=== PATIENT | female | born 1995 | race Hispanic/Latino ===

== ENCOUNTER 2017-07-27 16:18 | Inpatient (IN) | payer BC, SELFPAY ==
[2017-07-27 16:54] LABS: #Basophils 0.1 thou/uL (0.0-0.2); #Eosinphils 0.3 thou/uL (0.0-0.7); #Lymphocytes 4.7 thou/uL (1.20-3.40); #Monocytes 0.8 thou/uL (0.11-0.59); #Neutrophils 3.9 thou/uL (1.40-6.50); %Basophils 0.8 % (0.0-1.0); %Eosinophils 2.9 % (0.0-10.0); %Lymphocytes 48.4 % (21.0-51.0); %Monocytes 8.1 % (0.0-10.0); Hematocrit 34.1 % (36.0-47.0); Mean Platelet Volume 6.7 fL (7.4-10.4); Red Blood Cell (RBC) Count 3.92 mill/uL (4.20-5.40); White Blood Cell (WBC) Count 9.6 thou/uL (4.8-10.8)
[2017-07-27 17:15] LABS: ALT (SGPT) 31 U/L (8-55); AST (SGOT) 26 U/L (5-34); Alkaline Phosphatase 120 U/L (40-150); Anion Gap 13 mmol/L (10-20); BUN (Urea Nitrogen) 8 mg/dL (7.0-18.7); Bilirubin, Total 0.5 mg/dL (0.2-1.2); Calc. Creatinine Clearance 0 mL/min (70-130); Calcium 9.1 mg/dL (7.8-10.44); Carbon Dioxide 22 mmol/L (22-29); Chloride 109 mmol/L (98-107); Estimated GFR-MDRD Greater than 90; Globulin 4.7 g/dL (2.4-3.5); Protein, Total 8.4 g/dL (6.0-8.3)
[2017-07-27] MEDS ORDERED: Ketorolac Tromethamine 30 MG/ML VIAL ONE (17:40)
[2017-07-27] MEDS ORDERED: Metoclopramide HCl 10 MG/2 ML VIAL ONE (17:40)
--- NOTE | 2017-07-27 17:46 | CT ---
CT OF THE BRAIN WITHOUT CONTRAST: COMPARISON: None. HISTORY: Right side blurry vision since 07/22/2017. The patient initially had a headache. TECHNIQUE: Multiple contiguous axial images were obtained in a CT of the brain without contrast. FINDINGS: The brain is normal in morphology and attenuation without focal lesions or confluent areas of infarc tion. Hyperdense regions in the basal ganglia likely represent calcifications. There is no evidenc e of hydrocephalus, intracranial hemorrhage, or extraaxial fluid collection. The calvarium and overlying soft tissues are unremarkable. The visualized paranasal sinuses and mas toid air cells are well-aerated. IMPRESSION: No evidence of acute intracranial abnormality. POS: [facility]
[2017-07-27] MEDS ORDERED: Proparacaine 0.5% Opth 15 ML BOT ONE (19:35)
[2017-07-27] MEDS ORDERED: Fluorescein Opthalmic Strip ONE (19:35)
--- NOTE | 2017-07-27 20:53 | PDOC.EVN ---
Event Note - Event Note Event Note: [id number] 1. R/O MS + R/O Optic neuritis 2. Pain 3. Headache + Fever plan: see orders
[2017-07-27] MEDS ORDERED: Dextrose 50% Abboject 50 ML SYRINGE SLOW IVP PRN (20:54)
[2017-07-27] MEDS ORDERED: Ondansetron HCl/PF 4 MG/2 ML Vial IVP PRN (20:54)
[2017-07-27] MEDS ORDERED: Acetaminophen 325 MG TAB PO PRN (20:54)
[2017-07-27] MEDS ORDERED: Dextrose 5% in Water 1,000 ML IV PRN (20:54)
[2017-07-27] MEDS ORDERED: HumaLOG 300 UNITS/3 ML VIAL SC PRN ×2 (20:54)
[2017-07-27] MEDS ORDERED: methylPREDNISolone Sod Succ 1,000 MG in Sodium Chloride 0.9% 250 ML 250 ML IVPB SCH (21:00)
[2017-07-28 00:07] VITALS: BMI 42.3
[2017-07-28] MEDS: Sodium Chloride 0.9% 1,000 ML IV SCH ×4 (00:29→23:05)
[2017-07-28 05:19] LABS: Anion Gap 12 mmol/L (10-20); BUN (Urea Nitrogen) 10 mg/dL (7.0-18.7); Calc. Creatinine Clearance 170 mL/min (70-130); Calcium 8.8 mg/dL (7.8-10.44); Carbon Dioxide 19 mmol/L (22-29); Chloride 108 mmol/L (98-107); Estimated GFR-MDRD Greater than 90
[2017-07-28 06:03] LABS: Band 17 % (5-11); Mean Platelet Volume 6.8 fL (7.4-10.4); Neutrophil 61 % (42-75); Red Blood Cell (RBC) Count 4.26 mill/uL (4.20-5.40); White Blood Cell (WBC) Count 7.9 thou/uL (4.8-10.8)
--- NOTE | 2017-07-28 07:08 | HP ---
DATE OF ADMISSION: 07/27/2017 CHIEF COMPLAINT: Headache, fever, right eye vision loss. HISTORY OF PRESENT ILLNESS: The patient is 22-year-old female started having headache and fever for the past 10 days, intermittent; fever at home was up to 102. Denies any fever here. The patient complains of headache. Headache is all over the head, more on the right side, constant headache, dull kind, no aggravating factors, no relieving factors. The patient then started having vision loss of the right eye; decreased vision loss, right eye 6 days ago; complains of blurry vision. Denies any dizziness, denies any lightheadedness at this time. The patient's symptoms persisted that is why she came to the ER. PAST MEDICAL HISTORY: None. PAST SURGICAL HISTORY: None. 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 Currently, she should be starting menstrual cycle this week. Denies any pregnancies before. SOCIAL HISTORY: Denies smoking, denies alcohol, denies any drugs. FAMILY HISTORY: Denies heart problems. REVIEW OF SYSTEMS: Constitutional: Positive for fever and chills. Eyes: Positive for right eye decreased vision. Oral cavity: Denies any thrush. Neck : Denies any neck pain. Cardiovascular: Denies any chest pain, palpitations. At this time, complained of one episode of chest pain a few days back. Respiratory: Denies any cough, denies any sputum production. Gastrointestinal : Denies nausea, vomiting. Musculoskeletal: Denies any joint deformities. Integumentary: Denies any rash. Cranial nerve system: Positive for right eye decreased vision. Psychiatric: Denies any anxiety. Genitourinary: Denies any dysuria. All other review of systems are reviewed and are negative. PHYSICAL EXAMINATION: CONSTITUTIONAL/VITAL SIGNS: At the time of H and P performed, blood pressure is 120/70, afebrile, temperature 98.8, respiratory rate 18, and pulse ox 97% on room air. GENERAL APPEARANCE: The patient appears comfortable. HEENT: Pupils, right eye decreased vision present. Complains of blurry vision. NECK: Denies any neck pain. CARDIOVASCULAR: S1 S2 Present, rrr, no murmur, no rubs, no gallop PSYCHIATRIC: Denies anxiety. MUSCULOSKELETAL: Good range of motion in all joints. No edema. CRANIAL NERVE SYSTEM: Right eye decreased vision. Other cranial nerves appears intact. Strength intact, sensory intact. CARDIOVASCULAR SYSTEM: S1, S2 present, regular rate and rhythm, no murmurs, no rubs, no gallops. RESPIRATORY SYSTEM: No wheezing, no rhonchi. Breath sounds bilaterally. INTEGUMENTARY: No obvious rashes seen. LABORATORY DATA: At the time of H and P performed, white count 9.6, hemoglobin 11.7, platelet count 423,000. Sed rate 83. Sodium 140, potassium 3.5, chloride 109, CO2 of 22, BUN 8, creatinine 0.72. CRP 12.18. Serum protein 8.4 , globulin 4.7. ASSESSMENT AND PLAN: The patient is a 22-year-old female. 1. Rule out multiple sclerosis plus right eye decreased vision possible optic neuritis . ED physician did speak to the sawdust drier, Dr. Huey Dillon. He recommend to start the patient on 1 g Solu-Medrol daily for 3 days and he will evaluate the patient in the morning. We will go ahead and consult. We will consult Neurology also to evaluate the patient. We will keep neuro checks q.4 hours. We will monitor the patient closely. We will start the patient on insulin sliding scale also. 2. Headache and fever. Currently, fever resolved. We will go ahead and do blood cultures and urine culture and sensitivity also. If she spikes fever, we will discuss with neurologist about a possible LP also, but at this time, no meningeal signs. We will monitor the patient closely. We will do cultures and if the patient develops fever, we will go ahead and get LP done. 3. Pain, p.r.n. pain medications. Case was discussed in detail with the patient and the patient's boyfriend also. SANA
[2017-07-28] MEDS ORDERED: Loratadine 10 MG TAB PO PRN (07:58)
[2017-07-28] MEDS ORDERED: Eucerin (Mineral Oil/Petrolatum,White) 30 gm Jar TOP PRN (07:58)
[2017-07-28] MEDS ORDERED: Senokot 8.6 MG TAB PO PRN (07:58)
[2017-07-28] MEDS ORDERED: Temazepam 15 MG CAP PO PRN (07:58)
[2017-07-28] MEDS ORDERED: Artificial Tears 18 DROP/0.9 ML EA EYE PRN (07:58)
[2017-07-28] MEDS ORDERED: Bisacodyl 10 MG SUPP PR PRN (07:58)
[2017-07-28] MEDS ORDERED: Diabetic Tussin 200 MG/10 ML UDCUP PO PRN (07:58)
[2017-07-28] MEDS ORDERED: Sodium Chloride 0.65% Nasal 44 ML BOT EA NARE PRN (07:58)
[2017-07-28] MEDS ORDERED: Loperamide HCl 2 MG CAP PO PRN (07:58)
[2017-07-28] MEDS ORDERED: Ondansetron ODT 4 MG TAB PO PRN (07:58)
[2017-07-28] MEDS ORDERED: Milk Of Magnesia 30 ML UDCUP PO PRN (07:58)
[2017-07-28] MEDS ORDERED: Mag-Al 1200 mg/1200 mg/30 ML UDCUP PO PRN (07:58)
[2017-07-28] MEDS ORDERED: methylPREDNISolone Sod Succ 1,000 MG in Sodium Chloride 0.9% 250 ML 250 ML IVPB SCH (09:00)
[2017-07-28] MEDS: Famotidine 20 MG TAB PO SCH ×2 (09:12→20:50)
--- NOTE | 2017-07-28 11:34 | PDOC.PN ---
- Subjective Encounter Start Date: 07/28/17 Encounter Start Time: 08:20 -: old records requested/rev has headache, has blurred vision on right eye, has fever - Objective MAR Reviewed: Yes Vital Signs & Weight: Vital Signs (12 hours) Temp Pulse Resp BP BP Pulse Ox 07/28/17 08:24 97.8 F 64 18 132/84 98 07/28/17 08:00 97.8 F 64 18 07/28/17 03:50 97.8 F 77 20 105/69 98 07/28/17 01:47 98.4 F Weight Weight 209 lb 9 oz Result Diagrams: 07/28/17 04:29 07/28/17 04:29 Additional Labs: Accuchecks 07/28/17 07/28/17 03:54 00:40 POC Glucose 285 H 143 H Radiology Reviewed by me: Yes Phys Exam - Physical Examination Constitutional: NAD HEENT: PERRLA, moist MMs, sclera anicteric Neck: no JVD, supple Respiratory: no wheezing, no rales, no rhonchi Cardiovascular: RRR, no significant murmur, no rub Gastrointestinal: soft, non-tender, no distention, positive bowel sounds Musculoskeletal: no edema, pulses present Neurological: non-focal, normal sensation, moves all 4 limbs Lymphatic: no nodes Psychiatric: normal affect, A&O x 3 Skin: no rash, normal turgor Dx/Plan (1) Fever Code(s): R50.9 - FEVER, UNSPECIFIED Status: Acute (2) Headache Code(s): R51 - HEADACHE Status: Acute (3) Morbid obesity Code(s): E66.01 - MORBID (SEVERE) OBESITY DUE TO EXCESS CALORIES Status: Acute (4) Blurred vision, right eye Code(s): H53.8 - OTHER VISUAL DISTURBANCES Status: Acute - Plan cont current plan of care * will do LP and send CSF study * will get MRI * neurology consulted * opthalmology consulted * discussed with family * medication reviewed as below * symptomatic treatment. Review of Systems - Review of Systems Constitutional: Fever. negative: Chills, Sweats, Weakness, Malaise, Other Eyes: Vision Change. negative: Pain, Conjunctivae Inflammation, Eyelid Inflammation, Redness, Other Respiratory: negative: Cough, Dry, Shortness of Breath, Hemoptysis, SOB with Excertion, Pleuritic Pain, Sputum, Wheezing Cardiovascular: negative: Chest Pain, Palpitations, Orthopnea, Paroxysmal Noc. Dyspnea, Edema, Light Headedness, Other Gastrointestinal: negative: Nausea, Vomiting, Abdominal Pain, Diarrhea, Constipation, Melena, Hematochezia, Other Genitourinary: negative: Dysuria, Frequency, Incontinence, Hematuria, Retention , Other Musculoskeletal: negative: Neck Pain, Shoulder Pain, Arm Pain, Back Pain, Hand Pain, Leg Pain, Foot Pain, Other Skin: negative: Rash, Lesions, Keo, Bruising, Other Neurological: negative: Weakness, Numbness, Incoordination, Change in Speech, Confusion, Seizures, Other - Medications/Allergies Allergies/Adverse Reactions: Allergies Allergy/AdvReac Type Severity Reaction Status Date / Time No Known Drug Allergies Allergy Verified 07/27/17 23:49 Medications: Current Medications Acetaminophen (Tylenol) 650 mg PO Q4H PRN PRN Reason: Headache/Fever or Pain Hydrocodone Bitart/Acetaminophen ([place] 5/325) 1 tab PO Q4H PRN PRN Reason: Moderate Pain (4-6) Al Hydroxide/Mg Hydroxide (Maalox) 15 ml PO Q4H PRN PRN Reason: Heartburn or Indigestion Artificial Tears (Tears Naturale) 0 drop EA EYE PRN PRN PRN Reason: Dry Eyes Bisacodyl (Dulcolax) 10 mg [place] DAILYPRN PRN PRN Reason: Constipation Dextrose/Water (Dextrose 50%) 25 gm SLOW IVP PRN PRN PRN Reason: Hypoglycemia Famotidine (Pepcid) 20 mg PO BID [facility] Last Admin: 07/28/17 09:12 Dose: 20 mg Glucagon (Glucagon) 1 mg IM PRN PRN PRN Reason: Hypoglycemia Guaifenesin (Robitussin Sf) 200 mg PO Q4H PRN PRN Reason: Cough Hydralazine HCl (Apresoline) 10 mg SLOW IVP Q4H PRN PRN Reason: Systolic BP > 180 Dextrose/Water (D5w) 1,000 mls @ 0 mls/hr IV .Q0M PRN; As Directed PRN Reason: Hypoglycemia Sodium Chloride (Normal Saline 0.9%) 1,000 mls @ 125 mls/hr IV .Q8H [facility] Last Admin: 07/28/17 07:23 Dose: 1,000 mls Methylprednisolone Sodium Succinate 1,000 mg/ Sodium Chloride 266 mls @ 266 mls /hr IVPB DAILY [facility] Last Admin: 07/28/17 09:07 Dose: 266 mls Insulin Human Lispro (Humalog) 0 units SC .MODERATE SLIDING SC PRN PRN Reason: Moderate Correctional Scale Last Admin: 07/28/17 07:23 Dose: 0.6 unit Insulin Human Lispro (Humalog) 0 units SC .BEDTIME SLIDING SC PRN PRN Reason: Bedtime Correctional Scale Loperamide HCl (Imodium) 2 mg PO PRN PRN PRN Reason: Diarrhea/Loose Stools Loratadine (Claritin) 10 mg PO DAILYPRN PRN PRN Reason: Sinus Symptoms Magnesium Hydroxide (Milk Of Magnesium) 30 ml PO DAILYPRN PRN PRN Reason: Constipation Mineral Oil/White Petrolatum (Eucerin Cream) 0 gm TOP BIDPRN PRN PRN Reason: Dry Skin Ondansetron HCl (Zofran) 4 mg IVP Q6H PRN PRN Reason: Nausea/Vomiting Ondansetron HCl (Zofran Odt) 4 mg PO Q6H PRN PRN Reason: Nausea/Vomiting Senna (Senokot) 2 tab PO HSPRN PRN PRN Reason: Constipation Sodium Chloride (Flush - Normal Saline) 10 ml IVF Q12HR [facility] Last Admin: 07/28/17 09:07 Dose: Not Given Sodium Chloride (Flush - Normal Saline) 10 ml IVF PRN PRN PRN Reason: Saline Flush Sodium Chloride ([place] Nasal [place] 0.65%) 0 ml EA NARE QIDPRN PRN PRN Reason: Nasal Congestion Temazepam (Restoril) 15 mg PO HSPRN PRN PRN Reason: Insomnia
--- NOTE | 2017-07-28 12:40 | MRI ---
MRI BRAIN WITH AND WITHOUT CONTRAST: Technique: Multiplanar, multisequential imaging of the brain obtained. Post contrast images obtained with administration of 20 cc MultiHance IV. History: Headache, vision loss. FINDINGS: The ventricles have normal size and position. There is no evidence of mass or edema. No evidence of white matter abnormality. There is no evidence of restricted diffusion. No evidence of abnormal enha ncement. Cerebral vessels show normal flow voids. Paranasal sinuses appear clear. IMPRESSION: Unremarkable MRI brain. POS: [facility]
[2017-07-28] MEDS ORDERED: Gadobenate Dimeglumine 529 MG/1 ML (20ML VIAL) ONE (14:20)
--- NOTE | 2017-07-28 15:16 | RAD ---
TWO VIEW CHEST: History: Fever. FINDINGS: Lungs and mediastinum appear normal. Osseous structures are unremarkable. IMPRESSION: No acute finding. POS: [facility]
[2017-07-28 16:30] LABS: CSF, Glucose 85 mg/dl (40-70)
[2017-07-28 17:19] LABS: Bilirubin Negative (Negative); Blood, Urine Negative (Negative); Glucose, Urine (Dipstick) 500 mg/dL (Negative); Ketone, Urine Negative (Negative); Nitrite Negative (Negative); Protein, Urine (Dipstick) Negative (Neg-Trace)
--- NOTE | 2017-07-28 18:05 | RAD ---
PROCEDURE: FLUOROSCOPIC GUIDED LUMBAR PUNCTURE INDICATIONS: Fever, headache, vision loss, question meningitis or optic neuritis. Lumbar puncture is requested for CSF studies. FINDINGS: Approximately 3 mL of clear CSF is collected in each of three test tubes which are sent to Pathology for studies as ordered by the requesting physician. PROCEDURE NOTE: Procedure was discussed with patient. Patient was placed prone on the fluoroscopic table. The lower back was prepped and draped in the sterile manner. Local anesthesia is administered at the skin entr y site at L3 under fluoro guidance. A 22 gauge spinal needle was used to enter the spinal canal using a paramidline approach from the le ft at the L3 level under fluoroscopic guidance. Clear CSF was recovered. CSF was collected in three test tubes. Patient tolerated the procedure well. There were no problems or complications. POS: [facility]
[2017-07-28] MEDS ORDERED: methylPREDNISolone Sod Succ/PF 125 MG/2 ML VIAL IVP SCH (22:00)
--- NOTE | 2017-07-28 23:39 | CON ---
DATE OF CONSULTATION: 07/28/2017 NEUROLOGY CONSULTATION CONSULTING PHYSICIAN: Hospitalist Service. IMPRESSION: Monocular vision loss in the right eye, possibly secondary to septic emboli based on Op hthalmology's consultation. Her MRI of the brain does not show evidence of multiple sclerosis. PLAN: 1. Echocardiogram. 2. Blood cultures. 3. Consult Infectious Disease. HISTORY OF PRESENT ILLNESS: Ms. [place] is a 22-year-old female with no significant past his tory that she knew last week. She started experiencing headache and fever. She started noticing gr adual decrease in her vision out of the right eye. She felt like that it was a kind of steadily wor sening over the last several days, the headache would wax and wane in intensity. The fever was comi ng and going. She came in for admission and has been afebrile. She had an MRI of the brain done, w hich was unremarkable. Lumbar puncture showed clear colorless fluid with 3 white cells and 48 red c ells. Protein was 23 and glucose was 85. She has had some mildly elevated blood glucose since admi ssion. Ophthalmology evaluated the patient and did not feel her clinical picture was consistent wit h optic neuritis. PAST MEDICAL HISTORY: Otherwise, negative. ALLERGIES: None. SOCIAL HISTORY: No illicit drug use. FAMILY HISTORY: Noncontributory. REVIEW OF SYSTEMS: No other focal neurologic complaints. PHYSICAL EXAMINATION: GENERAL: She is an overweight young woman, lying in bed, in no distress. HEENT: Pupils are 8 mm and fixed secondary to dilation. Conjunctivae are clear. Oropharynx clear. NECK: Supple. NEUROLOGIC EXAM: She is alert and appropriate. Her speech is fluent and clear. Cranial nerves wer e intact other than what she describes as central field loss in the right eye. Motor exam showed go od strength bilaterally. There was no fix or drift present. No tremor or dysmetria was noted. Sen sation was intact in the extremities. She walks independently. SUMMARY: We will follow up on Ophthalmology's consultation suggestions and see if we can identify t he cause of her symptoms.
[2017-07-29] MEDS: Sodium Chloride 0.9% 1,000 ML IV SCH (04:27)
[2017-07-29 07:36] LABS: Anion Gap 12 mmol/L (10-20); BUN (Urea Nitrogen) 10 mg/dL (7.0-18.7); Calc. Creatinine Clearance 204 mL/min (70-130); Calcium 8.8 mg/dL (7.8-10.44); Carbon Dioxide 19 mmol/L (22-29); Chloride 111 mmol/L (98-107); Estimated GFR-MDRD Greater than 90
[2017-07-29 07:41] LABS: #Lymphocytes 1.9 thou/uL (1.20-3.40); #Monocytes 0.6 thou/uL (0.11-0.59); #Neutrophils 10.1 thou/uL (1.40-6.50); %Basophils 0.1 % (0.0-1.0); %Eosinophils 0.1 % (0.0-10.0); %Lymphocytes 15.3 % (21.0-51.0); %Monocytes 4.6 % (0.0-10.0); Hematocrit 34.8 % (36.0-47.0); Mean Platelet Volume 6.9 fL (7.4-10.4); Red Blood Cell (RBC) Count 3.91 mill/uL (4.20-5.40); White Blood Cell (WBC) Count 12.6 thou/uL (4.8-10.8)
[2017-07-29] MEDS: Famotidine 20 MG TAB PO SCH ×2 (08:25→22:58)
--- NOTE | 2017-07-29 12:53 | PDOC.PN ---
- Subjective Encounter Start Date: 07/29/17 Encounter Start Time: 09:10 pt still has visual symptoms in her right eye, no fever - Objective MAR Reviewed: Yes Vital Signs & Weight: Vital Signs (12 hours) Temp Pulse Resp BP Pulse Ox 07/29/17 11:19 97.5 F L 49 L 14 117/73 99 07/29/17 08:00 97.5 F L 49 L 16 07/29/17 07:35 97.5 F L 49 L 16 129/84 99 Weight Weight 209 lb 9 oz I&O: 07/28/17 07/29/17 07/30/17 06:59 06:59 06:59 Intake Total 1950 Balance 1950 Result Diagrams: 07/29/17 06:15 07/29/17 06:15 Additional Labs: Accuchecks 07/28/17 07/28/17 16:08 12:24 POC Glucose 119 H 165 H Phys Exam - Physical Examination Constitutional: NAD HEENT: PERRLA, moist MMs, sclera anicteric Neck: no JVD, supple Respiratory: no wheezing, no rales, no rhonchi Cardiovascular: RRR, no significant murmur, no rub Gastrointestinal: soft, non-tender, no distention, positive bowel sounds Musculoskeletal: no edema, pulses present Neurological: non-focal, normal sensation, moves all 4 limbs Psychiatric: normal affect, A&O x 3 Skin: no rash, normal turgor Dx/Plan (1) Fever Code(s): R50.9 - FEVER, UNSPECIFIED Status: Acute (2) Headache Code(s): R51 - HEADACHE Status: Acute (3) Morbid obesity Code(s): E66.01 - MORBID (SEVERE) OBESITY DUE TO EXCESS CALORIES Status: Acute (4) Blurred vision, right eye Code(s): H53.8 - OTHER VISUAL DISTURBANCES Status: Acute - Plan cont current plan of care * septic emboli as per opthalmology * pt does not have any obvious source of infection * csf negative * echo pending today * ID consulted * KARLEY ordered * will do carotid US * medication reviewed as below * symptomatic treatment.. Review of Systems - Review of Systems Eyes: Vision Change. negative: Pain, Conjunctivae Inflammation, Eyelid Inflammation, Redness, Other ENT: negative: Ear Pain, Ear Discharge, Nose Pain, Nose Discharge, Nose Congestion, Mouth Pain, Mouth Swelling, Throat Pain, Throat Swelling, Other Respiratory: negative: Cough, Dry, Shortness of Breath, Hemoptysis, SOB with Excertion, Pleuritic Pain, Sputum, Wheezing Cardiovascular: negative: Chest Pain, Palpitations, Orthopnea, Paroxysmal Noc. Dyspnea, Edema, Light Headedness, Other Gastrointestinal: negative: Nausea, Vomiting, Abdominal Pain, Diarrhea, Constipation, Melena, Hematochezia, Other Genitourinary: negative: Dysuria, Frequency, Incontinence, Hematuria, Retention , Other Musculoskeletal: negative: Neck Pain, Shoulder Pain, Arm Pain, Back Pain, Hand Pain, Leg Pain, Foot Pain, Other Skin: negative: Rash, Lesions, Keo, Bruising, Other - Medications/Allergies Allergies/Adverse Reactions: Allergies Allergy/AdvReac Type Severity Reaction Status Date / Time No Known Drug Allergies Allergy Verified 07/27/17 23:49 Medications: Current Medications Acetaminophen (Tylenol) 650 mg PO Q4H PRN PRN Reason: Headache/Fever or Pain Hydrocodone Bitart/Acetaminophen ([place] 5/325) 1 tab PO Q4H PRN PRN Reason: Moderate Pain (4-6) Al Hydroxide/Mg Hydroxide (Maalox) 15 ml PO Q4H PRN PRN Reason: Heartburn or Indigestion Artificial Tears (Tears Naturale) 0 drop EA EYE PRN PRN PRN Reason: Dry Eyes Bisacodyl (Dulcolax) 10 mg [place] DAILYPRN PRN PRN Reason: Constipation Dextrose/Water (Dextrose 50%) 25 gm SLOW IVP PRN PRN PRN Reason: Hypoglycemia Famotidine (Pepcid) 20 mg PO BID [facility] Last Admin: 07/29/17 08:25 Dose: 20 mg Glucagon (Glucagon) 1 mg IM PRN PRN PRN Reason: Hypoglycemia Guaifenesin (Robitussin Sf) 200 mg PO Q4H PRN PRN Reason: Cough Hydralazine HCl (Apresoline) 10 mg SLOW IVP Q4H PRN PRN Reason: Systolic BP > 180 Dextrose/Water (D5w) 1,000 mls @ 0 mls/hr IV .Q0M PRN; As Directed PRN Reason: Hypoglycemia Insulin Human Lispro (Humalog) 0 units SC .MODERATE SLIDING SC PRN PRN Reason: Moderate Correctional Scale Last Admin: 07/28/17 07:23 Dose: 0.6 unit Insulin Human Lispro (Humalog) 0 units SC .BEDTIME SLIDING SC PRN PRN Reason: Bedtime Correctional Scale Loperamide HCl (Imodium) 2 mg PO PRN PRN PRN Reason: Diarrhea/Loose Stools Loratadine (Claritin) 10 mg PO DAILYPRN PRN PRN Reason: Sinus Symptoms Magnesium Hydroxide (Milk Of Magnesium) 30 ml PO DAILYPRN PRN PRN Reason: Constipation Mineral Oil/White Petrolatum (Eucerin Cream) 0 gm TOP BIDPRN PRN PRN Reason: Dry Skin Ondansetron HCl (Zofran) 4 mg IVP Q6H PRN PRN Reason: Nausea/Vomiting Ondansetron HCl (Zofran Odt) 4 mg PO Q6H PRN PRN Reason: Nausea/Vomiting Senna (Senokot) 2 tab PO HSPRN PRN PRN Reason: Constipation Sodium Chloride (Flush - Normal Saline) 10 ml IVF Q12HR [facility] Last Admin: 07/29/17 08:27 Dose: 10 ml Sodium Chloride (Flush - Normal Saline) 10 ml IVF PRN PRN PRN Reason: Saline Flush Sodium Chloride ([place] Nasal [place] 0.65%) 0 ml EA NARE QIDPRN PRN PRN Reason: Nasal Congestion Temazepam (Restoril) 15 mg PO HSPRN PRN PRN Reason: Insomnia
[2017-07-29] MEDS ORDERED: Cyclopentolate 1% Opth Drop 2 ML BOT EA EYE SCH (13:30)
--- NOTE | 2017-07-29 15:44 | ULT ---
BILATERAL CAROTID DUPLEX ULTRASOUND: 07/29/17 HISTORY: 22-year-old female with vision changes, right sided blurry vision and headache. TECHNIQUE: Rees scale, color flow and spectral doppler ultrasound of the extracranial carotid artery system was performed bilaterally. No intimal wall thickening or plaque formation is seen on either side. The peak systolic velocity in the right ICA measures 54 cm/s with an end diastolic velocity of 26 cm /s and systolic ratio of 1.00. The peak systolic velocity in the left ICA measures 52 cm/s with an end diastolic velocity of 23 cm/ s and systolic ratio of 0.71. Flow in both vertebral arteries remains antegrade. IMPRESSION: No evidence of hemodynamically significant stenosis. POS: [facility]
--- NOTE | 2017-07-29 23:47 | CON ---
DATE OF CONSULTATION: 07/29/2017 REASON FOR CONSULTATION: Visual loss and fever with headaches. HISTORY OF PRESENT ILLNESS: A 22-year-old patient, who has no past medical history and new onset of headaches and fever for 10 days prior to admission, temperature went up to 102. The headache was l ocalized more in the right parietal region. Subsequently, she started noticing vision loss in the r ight side with central vision loss and blurriness. This started 6 days prior to admission. No nasa l symptoms, no ear pain, no sore throat, odynophagia, dysphagia. No cough, sputum production or darnell st pain. No abdominal pain or diarrhea. No genitourinary symptoms. No joint symptoms. No skin di sorder. No neurological symptoms outside the one as mentioned above. PAST MEDICAL HISTORY: Negative. PAST SURGICAL HISTORY: Negative. Last menstrual period 07/24/2017, never been . SOCIAL HISTORY: Never a smoker. 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 No drug use. No al coholic beverage use. Lives with her boyfriend in [place]. FAMILY HISTORY: Noncontributory. ALLERGIES: Negative. MEDICATION LIST: Pepcid, glucagon, hydralazine, insulin, Claritin, Zofran, and temazepam. She had methylprednisolone given for a while there, but that was discontinued. PHYSICAL EXAMINATION: VITAL SIGNS: T-max started at 100, but she defervesced since. Blood pressure 116/77, pulse 52, res pirations 14 to 20, O2 saturation 99%. GENERAL: Appears in no distress. SKIN: Normal, no lymphadenopathy. HEENT: Ocular movements are conjugate. Sclerae are white. Pupils are 1 mm and reactive. Oral cav ity is normal. Teeth in good shape. NECK: Supple, no jugular venous distention. LUNGS: Symmetric, auscultation and percussion. HEART: S1, S2, regular rate. No murmurs. ABDOMEN: Soft. Not distended or tender. No ascites. No bladder distention. EXTREMITIES: Moves all extremities equally. LABORATORY AND DIAGNOSTIC DATA: White cell count is up to 12.6, hemoglobin was 11.4, and platelets 396. Chemistry: Creatinine of 0.65 and sodium 138. CRP was initially 12.18, down to 7.58. CSF wa s done and showed 3 wbc's, 48 rbc's, glucose 85, protein 23. Serology was negative for syphilis, he patitis B surface antigen, hepatitis C and HIV and cryptococcus antigen CSF was negative. MRI did n ot show any abnormalities. Chest x-ray was normal. ASSESSMENT: Otherwise, healthy young female with new onset of headaches, fever and central vision l oss. Ophthalmology has evaluated the patient and believes that there is evidence to suggest retinit is. DISCUSSION: Differential diagnosis includes chorioretinitis secondary to mycoplasma, Bartonella or toxoplasma species. The patient has cats in the home setting and dogs and rabbits, so she might hav e had exposure to one of the above organisms. We will check serologies and treat according to resul ts. We could start empiric treatment with azithromycin until final results are available. If the t oxoplasma serology is positive, then we would have to consider treatment for that in addition to the azithromycin depending on results of the other serologies.
[2017-07-30] MEDS: Azithromycin 250 MG TAB PO SCH (08:38)
[2017-07-30] MEDS: Famotidine 20 MG TAB PO SCH ×2 (08:38→20:47)
--- NOTE | 2017-07-30 10:36 | PDOC.PN ---
- Subjective Encounter Start Date: 07/30/17 Encounter Start Time: 07:50 this morning she c/o epigastric pain, no nausea or fever - Objective MAR Reviewed: Yes Vital Signs & Weight: Vital Signs (12 hours) Temp Pulse Resp BP Pulse Ox 07/30/17 08:00 97.9 F 54 L 18 121/81 98 07/30/17 04:38 46 L 07/29/17 23:00 54 L Weight Weight 209 lb 9 oz I&O: 07/29/17 07/30/17 07/31/17 06:59 06:59 06:59 Intake Total 1950 1720 Balance 1950 1720 Result Diagrams: 07/29/17 06:15 07/29/17 06:15 Phys Exam - Physical Examination Constitutional: NAD HEENT: PERRLA, moist MMs, sclera anicteric Neck: no JVD, supple Respiratory: no wheezing, no rales, no rhonchi Cardiovascular: RRR, no significant murmur, no rub Gastrointestinal: soft, non-tender, no distention, positive bowel sounds Musculoskeletal: no edema, pulses present Neurological: non-focal, normal sensation, moves all 4 limbs Psychiatric: normal affect, A&O x 3 Skin: no rash, normal turgor Dx/Plan (1) Fever Code(s): R50.9 - FEVER, UNSPECIFIED Status: Acute (2) Headache Code(s): R51 - HEADACHE Status: Acute (3) Morbid obesity Code(s): E66.01 - MORBID (SEVERE) OBESITY DUE TO EXCESS CALORIES Status: Acute (4) Blurred vision, right eye Code(s): H53.8 - OTHER VISUAL DISTURBANCES Status: Acute - Plan cont current plan of care, continue antibiotics * dr fagan input appreciated * medication reviewed as below * symptomatic treatment * follow up on send out test result * continue azithromycin. Review of Systems - Review of Systems Eyes: Vision Change. negative: Pain, Conjunctivae Inflammation, Eyelid Inflammation, Redness, Other ENT: negative: Ear Pain, Ear Discharge, Nose Pain, Nose Discharge, Nose Congestion, Mouth Pain, Mouth Swelling, Throat Pain, Throat Swelling, Other Respiratory: negative: Cough, Dry, Shortness of Breath, Hemoptysis, SOB with Excertion, Pleuritic Pain, Sputum, Wheezing Cardiovascular: negative: Chest Pain, Palpitations, Orthopnea, Paroxysmal Noc. Dyspnea, Edema, Light Headedness, Other Gastrointestinal: Abdominal Pain. negative: Nausea, Vomiting, Diarrhea, Constipation, Melena, Hematochezia, Other Genitourinary: negative: Dysuria, Frequency, Incontinence, Hematuria, Retention , Other Musculoskeletal: negative: Neck Pain, Shoulder Pain, Arm Pain, Back Pain, Hand Pain, Leg Pain, Foot Pain, Other Skin: negative: Rash, Lesions, Keo, Bruising, Other - Medications/Allergies Allergies/Adverse Reactions: Allergies Allergy/AdvReac Type Severity Reaction Status Date / Time No Known Drug Allergies Allergy Verified 07/27/17 23:49 Medications: Current Medications Acetaminophen (Tylenol) 650 mg PO Q4H PRN PRN Reason: Headache/Fever or Pain Hydrocodone Bitart/Acetaminophen ([place] 5/325) 1 tab PO Q4H PRN PRN Reason: Moderate Pain (4-6) Al Hydroxide/Mg Hydroxide (Maalox) 15 ml PO Q4H PRN PRN Reason: Heartburn or Indigestion Artificial Tears (Tears Naturale) 0 drop EA EYE PRN PRN PRN Reason: Dry Eyes Azithromycin (Zithromax) 500 mg PO DAILY [facility] Stop: 08/02/17 09:01 Last Admin: 07/30/17 08:38 Dose: 500 mg Bisacodyl (Dulcolax) 10 mg [place] DAILYPRN PRN PRN Reason: Constipation Dextrose/Water (Dextrose 50%) 25 gm SLOW IVP PRN PRN PRN Reason: Hypoglycemia Famotidine (Pepcid) 20 mg PO BID [facility] Last Admin: 07/30/17 08:38 Dose: 20 mg Glucagon (Glucagon) 1 mg IM PRN PRN PRN Reason: Hypoglycemia Guaifenesin (Robitussin Sf) 200 mg PO Q4H PRN PRN Reason: Cough Hydralazine HCl (Apresoline) 10 mg SLOW IVP Q4H PRN PRN Reason: Systolic BP > 180 Dextrose/Water (D5w) 1,000 mls @ 0 mls/hr IV .Q0M PRN; As Directed PRN Reason: Hypoglycemia Insulin Human Lispro (Humalog) 0 units SC .MODERATE SLIDING SC PRN PRN Reason: Moderate Correctional Scale Last Admin: 07/28/17 07:23 Dose: 0.6 unit Insulin Human Lispro (Humalog) 0 units SC .BEDTIME SLIDING SC PRN PRN Reason: Bedtime Correctional Scale Loperamide HCl (Imodium) 2 mg PO PRN PRN PRN Reason: Diarrhea/Loose Stools Loratadine (Claritin) 10 mg PO DAILYPRN PRN PRN Reason: Sinus Symptoms Magnesium Hydroxide (Milk Of Magnesium) 30 ml PO DAILYPRN PRN PRN Reason: Constipation Mineral Oil/White Petrolatum (Eucerin Cream) 0 gm TOP BIDPRN PRN PRN Reason: Dry Skin Ondansetron HCl (Zofran) 4 mg IVP Q6H PRN PRN Reason: Nausea/Vomiting Ondansetron HCl (Zofran Odt) 4 mg PO Q6H PRN PRN Reason: Nausea/Vomiting Senna (Senokot) 2 tab PO HSPRN PRN PRN Reason: Constipation Sodium Chloride (Flush - Normal Saline) 10 ml IVF Q12HR [facility] Last Admin: 07/30/17 08:38 Dose: 10 ml Sodium Chloride (Flush - Normal Saline) 10 ml IVF PRN PRN PRN Reason: Saline Flush Sodium Chloride ([place] 0.65%) 0 ml EA NARE QIDPRN PRN PRN Reason: Nasal Congestion Temazepam (Restoril) 15 mg PO HSPRN PRN PRN Reason: Insomnia
[2017-07-30] MEDS: HYDROcodone/Acetaminophen 5/325 mg Tablet PO PRN ×2 (11:21→15:30)
[2017-07-30] MEDS: Ketorolac Tromethamine 30 MG/ML VIAL IVP PRN ×2 (12:41→22:59)
[2017-07-30] MEDS: cefTRIAXone\\ROCEPHIN 1 GM in Sodium Chloride 0.9% 100 ML IVPB SCH (15:31)
--- NOTE | 2017-07-30 20:16 | PRG ---
DATE OF SERVICE: 07/30/2017 SUBJECTIVE: She had some recrudescence of fever yesterday and today, some back pain along the entir e back area, not any particular spot. Still with the same visual symptoms. No sore throat, no coug h or sputum production or chest pain, no abdominal pain or diarrhea. No genitourinary symptoms. OBJECTIVE: VITAL SIGNS: T-max 102.2 earlier today. Pulse 82, respirations 18, O2 sat 100%. SKIN: Normal, no lymphadenopathy. HEENT: Ocular movements are the same. Pupils are 2 mm and reactive. NECK: Supple. Oral cavity normal. LUNGS: Clear to auscultation and percussion. HEART: S1, S2, regular rate. ABDOMEN: Soft, not distended or tender. EXTREMITIES: No joint inflammatory activity noted. NEUROLOGIC: Nonfocal. LABORATORY DATA: White cell count yesterday was 12.6, hemoglobin 11, platelets 396 with 79% neutrop hils. Sodium 138, creatinine 0.65 with a glucose of 192. Liver profile within normal limits, KARLEY w as negative. The syphilis, hepatitis surface antigen, hepatitis C and HIV serology negative. Mycop lasma, Bartonella and toxo serologies are pending. ASSESSMENT AND DISCUSSION: Retinitis with fever. Differential diagnosis includes mycoplasma, Yasir caro, toxo and CMV primary infection. West Nile, dengue, chikungunya, Zika are less likely. We wi ll have to get CMV, DNA, PCR and serology panel as well.
[2017-07-31 05:23] LABS: Anion Gap 14 mmol/L (10-20); BUN (Urea Nitrogen) 12 mg/dL (7.0-18.7); Calc. Creatinine Clearance 204 mL/min (70-130); Calcium 8.6 mg/dL (7.8-10.44); Carbon Dioxide 22 mmol/L (22-29); Chloride 105 mmol/L (98-107); Estimated GFR-MDRD Greater than 90
[2017-07-31 06:56] LABS: Band 2 % (5-11); Hematocrit 37.4 % (36.0-47.0); Mean Platelet Volume 6.7 fL (7.4-10.4); Neutrophil 41 % (42-75); Red Blood Cell (RBC) Count 4.24 mill/uL (4.20-5.40); White Blood Cell (WBC) Count 10.4 thou/uL (4.8-10.8)
[2017-07-31] MEDS: Famotidine 20 MG TAB PO SCH ×2 (08:42→20:49)
[2017-07-31] MEDS: Azithromycin 250 MG TAB PO SCH (08:43)
--- NOTE | 2017-07-31 09:19 | RAD ---
PA AND LATERAL CHEST TWO VIEWS: HISTORY: A 22-year-old female with pleuritic chest pain. COMPARISON: 03/22/2015 FINDINGS: Heart size is normal. There are some mild linear increased markings over the right upper lobe and i n the lung base region, possibly some subsegmental atelectasis. No confluent pneumonia. No pneumot horax or pleural effusion. IMPRESSION: Increased linear markings bilaterally, probably representing some degree of subsegmental atelectasis . POS: OFF
--- NOTE | 2017-07-31 10:56 | PDOC.PN ---
- Subjective Encounter Start Date: 07/31/17 Encounter Start Time: 09:40 Patient seen and examined. No new complaints. No overnight events - Objective MAR Reviewed: Yes Vital Signs & Weight: Vital Signs (12 hours) Temp Pulse Resp BP Pulse Ox 07/31/17 08:00 98.4 F 70 18 116/78 96 07/31/17 06:53 98.4 F 75 18 124/83 98 Weight Weight 209 lb 9 oz I&O: 07/30/17 07/31/17 08/01/17 06:59 06:59 06:59 Intake Total 1720 1540 Balance 1720 1540 Result Diagrams: 07/31/17 04:21 07/31/17 04:21 Phys Exam - Physical Examination Constitutional: NAD HEENT: PERRLA, moist MMs, sclera anicteric Neck: no JVD, supple Respiratory: no wheezing, no rales, no rhonchi Cardiovascular: RRR, no significant murmur, no rub Gastrointestinal: soft, non-tender, no distention, positive bowel sounds Musculoskeletal: no edema, pulses present Neurological: non-focal, normal sensation, moves all 4 limbs Psychiatric: normal affect, A&O x 3 Skin: no rash, normal turgor Dx/Plan (1) Fever Code(s): R50.9 - FEVER, UNSPECIFIED Status: Acute (2) Headache Code(s): R51 - HEADACHE Status: Acute (3) Morbid obesity Code(s): E66.01 - MORBID (SEVERE) OBESITY DUE TO EXCESS CALORIES Status: Acute (4) Blurred vision, right eye Code(s): H53.8 - OTHER VISUAL DISTURBANCES Status: Acute - Plan cont current plan of care, plan discussed w/ family, continue antibiotics * spoke with opthalmologist, unchanged exam * medication reviewed as below * symptomatic treatment. * continue rocephin and azithromycin * follow up on send out test result. Review of Systems - Review of Systems Eyes: Vision Change. negative: Pain, Conjunctivae Inflammation, Eyelid Inflammation, Redness, Other ENT: negative: Ear Pain, Ear Discharge, Nose Pain, Nose Discharge, Nose Congestion, Mouth Pain, Mouth Swelling, Throat Pain, Throat Swelling, Other Respiratory: negative: Cough, Dry, Shortness of Breath, Hemoptysis, SOB with Excertion, Pleuritic Pain, Sputum, Wheezing Cardiovascular: negative: Chest Pain, Palpitations, Orthopnea, Paroxysmal Noc. Dyspnea, Edema, Light Headedness, Other Gastrointestinal: negative: Nausea, Vomiting, Abdominal Pain, Diarrhea, Constipation, Melena, Hematochezia, Other Genitourinary: negative: Dysuria, Frequency, Incontinence, Hematuria, Retention , Other Musculoskeletal: negative: Neck Pain, Shoulder Pain, Arm Pain, Back Pain, Hand Pain, Leg Pain, Foot Pain, Other Skin: negative: Rash, Lesions, Keo, Bruising, Other - Medications/Allergies Allergies/Adverse Reactions: Allergies Allergy/AdvReac Type Severity Reaction Status Date / Time No Known Drug Allergies Allergy Verified 07/27/17 23:49 Medications: Current Medications Acetaminophen (Tylenol) 650 mg PO Q4H PRN PRN Reason: Headache/Fever or Pain Hydrocodone Bitart/Acetaminophen ([place] 5/325) 1 tab PO Q4H PRN PRN Reason: Moderate Pain (4-6) Last Admin: 07/30/17 15:30 Dose: 1 tab Al Hydroxide/Mg Hydroxide (Maalox) 15 ml PO Q4H PRN PRN Reason: Heartburn or Indigestion Artificial Tears (Tears Naturale) 0 drop EA EYE PRN PRN PRN Reason: Dry Eyes Azithromycin (Zithromax) 500 mg PO DAILY [facility] Stop: 08/02/17 09:01 Last Admin: 07/31/17 08:43 Dose: 500 mg Bisacodyl (Dulcolax) 10 mg [place] DAILYPRN PRN PRN Reason: Constipation Dextrose/Water (Dextrose 50%) 25 gm SLOW IVP PRN PRN PRN Reason: Hypoglycemia Famotidine (Pepcid) 20 mg PO BID [facility] Last Admin: 07/31/17 08:42 Dose: 20 mg Glucagon (Glucagon) 1 mg IM PRN PRN PRN Reason: Hypoglycemia Guaifenesin (Robitussin Sf) 200 mg PO Q4H PRN PRN Reason: Cough Hydralazine HCl (Apresoline) 10 mg SLOW IVP Q4H PRN PRN Reason: Systolic BP > 180 Dextrose/Water (D5w) 1,000 mls @ 0 mls/hr IV .Q0M PRN; As Directed PRN Reason: Hypoglycemia Ceftriaxone Sodium 1 gm/ (Sodium Chloride) 100 mls @ 200 mls/hr IVPB Q24HR [facility] Last Admin: 07/30/17 15:31 Dose: 100 mls Insulin Human Lispro (Humalog) 0 units SC .MODERATE SLIDING SC PRN PRN Reason: Moderate Correctional Scale Last Admin: 07/28/17 07:23 Dose: 0.6 unit Insulin Human Lispro (Humalog) 0 units [place] .BEDTIME SLIDING SC PRN PRN Reason: Bedtime Correctional Scale Ketorolac Tromethamine (Toradol) 15 mg IVP Q6H PRN PRN Reason: Pain Stop: 08/04/17 12:09 Last Admin: 07/30/17 22:59 Dose: 15 mg Loperamide HCl (Imodium) 2 mg PO PRN PRN PRN Reason: Diarrhea/Loose Stools Loratadine (Claritin) 10 mg PO DAILYPRN PRN PRN Reason: Sinus Symptoms Magnesium Hydroxide (Milk Of Magnesium) 30 ml PO DAILYPRN PRN PRN Reason: Constipation Mineral Oil/White Petrolatum (Eucerin Cream) 0 gm TOP BIDPRN PRN PRN Reason: Dry Skin Ondansetron HCl (Zofran) 4 mg IVP Q6H PRN PRN Reason: Nausea/Vomiting Ondansetron HCl (Zofran Odt) 4 mg PO Q6H PRN PRN Reason: Nausea/Vomiting Senna (Senokot) 2 tab PO HSPRN PRN PRN Reason: Constipation Sodium Chloride (Flush - Normal Saline) 10 ml IVF Q12HR [facility] Last Admin: 07/31/17 08:43 Dose: 10 ml Sodium Chloride (Flush - Normal Saline) 10 ml IVF PRN PRN PRN Reason: Saline Flush Last Admin: 07/30/17 23:01 Dose: 10 ml Sodium Chloride ([place] Nas[place] 0.65%) 0 ml EA NARE QIDPRN PRN PRN Reason: Nasal Congestion Temazepam (Restoril) 15 mg PO HSPRN PRN PRN Reason: Insomnia
[2017-07-31 12:16] LABS: West Nile Virus IgG Ab - CSF Negative (Negative); West Nile Virus IgM Ab - CSF Negative (Negative)
[2017-07-31] MEDS: HYDROcodone/Acetaminophen 5/325 mg Tablet PO PRN (14:36)
[2017-07-31] MEDS: cefTRIAXone\\ROCEPHIN 1 GM in Sodium Chloride 0.9% 100 ML IVPB SCH (14:36)
[2017-07-31] MEDS: Ketorolac Tromethamine 30 MG/ML VIAL IVP PRN (20:46)
[2017-08-01 07:24] LABS: Toxoplasma IgG AB Less than 3.0 IU/mL (0.0-7.1); Toxoplasma IgM AB Less than 3.0 AU/mL (0.0-7.9)
[2017-08-01] MEDS: Famotidine 20 MG TAB PO SCH (08:18)
[2017-08-01] MEDS: Azithromycin 250 MG TAB PO SCH (08:19)
[2017-08-01 11:51] VITALS: BP 115/82; TEMP 98
--- NOTE | 2017-08-01 13:34 | DIS ---
DATE OF ADMISSION: 07/27/2017 DATE OF DISCHARGE: 08/01/2017 PRIMARY CARE PHYSICIAN: [facility] call admission. DISCHARGE DISPOSITION: Home. PRIMARY DISCHARGE DIAGNOSES: 1. Febrile illness, exact etiology not known. 2. Septic emboli in right eye. SECONDARY DISCHARGE DIAGNOSIS: Morbid obesity with body mass index of 42. PRIMARY PROCEDURE/OPERATION: Lumbar puncture. RADIOLOGICAL INVESTIGATION: CT brain was negative for any acute intracranial process. MRI brain was negative for any acute process. Chest x-ray initially was normal. Repeat chest x-ray showed increased pulmonary vascular marking. Echocardiography was negative for any vegetation. Carotid Doppler was negative for any stenosis. SIGNIFICANT LABORATORY DATA: WBC 10.4, hemoglobin 12.5, and platelets 469. ESR 62. Sodium 137, potassium 3.9, BUN 12, creatinine 0.65, calcium 8.6, CRP 7.58. LFT normal. test negative. Urinalysis normal. CSF analysis was normal. CSF West Nile and serology came back negative. KARLEY negative. Toxoplasma antibody negative, hepatitis B surface antigen negative, RPR negative. TEST RESULTS PENDING ON DISCHARGE: Bartonella henselae serology and mycoplasma pneumonia serology, and oligoclonal bandings. DISCHARGE MEDICATIONS: Azithromycin 500 mg p.o. daily for 5 more days, Omnicef 300 mg twice daily for 7 days, Florastor 250 mg p.o. daily, and Tylenol 650 mg q.6 hourly p.r.n. CONTRAINDICATIONS: None. CODE STATUS: FULL CODE. INPATIENT CONSULTANTS: Dr. Huey Dillon was consulted while in hospital and based on his examination this patient had septic emboli in right eye. Dr. Sandy Lei was consulted while in hospital. Dr. Frey was consulted while in hospital. TEST RESULT PENDING ON DISCHARGE: As above. DISCHARGE PLAN: Post hospital, the patient is advised to follow up with Dr. Huey Dillon, Dr. Samy Frey for followup on the send out result. HOSPITAL COURSE: A 22-year-old female, who was admitted on 07/27/[address] Rosario, please see his H\T\P for further details. This patient was having fever, headache, and right eye vision loss. This patient was having intermittent high-grade fever up to 102 at home and she was also experiencing headache and she was also having visual loss on her right eye and that is why we concerned about and this patient was kept in hospital. In the emergency room, Ophthalmology was consulted and they recommended that they should start with a high dose of steroid for presumed multiple sclerosis. Her CT brain was negative. Next day, we did MRI brain that came back normal. We did CSF with lumbar puncture and her CSF study was also unremarkable. The patient did not have any further fever while in hospital for at least one more day and next day the patient was having high-grade fever up to 102.2. At that point, the patient was receiving azithromycin from Dr. Frey and I added Rocephin. After adding Rocephin and continuing with azithromycin, the patient did not have any further fever. Her last fever was on 07/30/2017. At this point, Dr. Frey was consulted to find a source of infection and we did an echocardiography, which is negative for any vegetation, cryptococcal antigen. CSF is negative. Blood culture negative. Urine culture negative. West Nile virus serology is negative. Oligoclonal band is pending as this patient has cats at home and that is why toxoplasma serology was ordered that is also negative. Bartonella henselae is still pending. At this point, the patient has clinically responded to treatment. She still does not have any vision in her right eye and that is why we advised her to follow up with Dr. Huey Dillon for further evaluation as an outpatient basis and Dr. Frey for followup on test result. At this point, on discharge, I changed to Omnicef and continued with azithromycin for another 5 days. The patient is pretty much eager to go home, she is tired in hospital. I spoke with the family member about course of treatment and plan of treatment. The patient is seen and examined at bedside today. PHYSICAL EXAMINATION: VITAL SIGNS: Currently, temperature 98.3, pulse 84, respiratory rate 18, saturation 98%, blood pressure 106/75. Weight 209 pounds. GENERAL: The patient is currently alert, awake, in no acute distress. HEAD: Normocephalic, atraumatic. EYES: Pupils round, reactive to light. Extraocular muscles intact. ENT: Oropharynx within normal limits. Moist mucous membranes. No oral lesions. No pharyngeal erythema. No exudate. NECK: Supple, range of motion is normal. No meningeal signs of irritation. LUNGS: Clear to auscultation without any rhonchi or rales. CARDIAC: S1 and S2, regular without any murmur. ABDOMEN: Soft and benign. EXTREMITIES: No edema. NEUROLOGIC: Nonfocal examination. Overall, this patient is medically stable for discharge today. Total time spent on discharge day more than 30 minutes. MTDD
[2017-08-02 13:08] LABS: CMV IgM AB Less than 30.0 AU/mL (0.0-29.9)
== END 2017-08-01 12:01 | disposition home or self-care (01) | DRG 125 ==
LOC: ERS 16:18 → T4-B 20:48
PROVIDERS: ADMIT Internal Medicine; ATTEND Internal Medicine
PROC: 009U3ZX Drainage of Spinal Canal, Percutaneous Approach, Diagnostic (ICD-10-PCS; principal; 2017-07-28)
PROC: B01BYZZ Fluoroscopy of Spinal Cord using Other Contrast (ICD-10-PCS; 2017-07-28)
DX: H30.91 Unspecified chorioretinal inflammation, right eye (principal); I76 Septic arterial embolism; H34.9 Unspecified retinal vascular occlusion; Z68.41 Body mass index [BMI] 40.0-44.9, adult; E66.01 Morbid (severe) obesity due to excess calories
CPT/HCPCS: 36415; 36416; 62270; 70450; 70553; 71020; 80048; 80053; 81003; 82945; 83916; 84157; 84443; 84703; 85025; 85652; 86038; 86140; 86611; 86644; 86645; 86777; 86778; 86780; 86788; 86789; 86803; 87040; 87070; 87086; 87205; 87340; 87389; 87497; 87899; 89051; 93005; 93010; 93306; 93880; 96365; 96366; 96368; 96375; A4216; A9579; J0696; J1885; J2765; J2930; J7050

== ENCOUNTER 2024-04-21 20:07 | Emergency (ER) | payer OTHER, SELFPAY | END 2024-04-21 22:02 | disposition home or self-care (01) | LOC: ERS 20:07 | DX: T81.31XA Disruption of external operation (surgical) wound, not elsewhere classified, initial encounter (principal) | CPT/HCPCS: 99283 ==